=== PATIENT | female | born 1980 | race Caucasian/White ===

== ENCOUNTER → 2022-02-03 16:58 | Outpatient (REF) | payer OTHER, SELFPAY ==
--- NOTE | 2022-02-03 17:05 | CA_ITS ---
Transthoracic Echocardiogram Patient (Last, First, Middle): Lily Kemp, Gender: Female Date of : 1980 Age: 41 Procedure Date: 02/03/2022 Procedure Type: Transthoracic Echocardiogram Location: [facility] Height: 160.02 cm Weight: 89.81 kg BSA: 1.93 m2 Heart Rate: bpm BP: 128 / 88 mmHg [place] Operator: [id number] Referring MD: Donna Reyna ART CONSULTANT Symptoms: R07.9 CHEST PAIN Study Quality: Fair ECG Rhythm: Sinus Conclusions: - The left ventricular systolic function is normal. The calculated ejection fraction is 62% by biplane method. - No obvious valvular pathology seen on this study. Findings Left Ventricle Normal left ventricular cavity size. There is normal left ventricular wall thickness. The left ventricular systolic function is normal. The calculated ejection fraction is 62% by biplane method. There is no evidence of regional wall motion abnormalities. Diastolic function is normal for age. Right Ventricle Normal right ventricular cavity size and systolic function. Atria Both atria are normal in size. Aortic Valve There is a normal trileaflet aortic valve. There is no aortic valve stenosis. There is no aortic valve regurgitation. Mitral Valve The mitral valve appears normal. There is no mitral valve regurgitation. There is no mitral valve stenosis. Pulmonic Valve The pulmonic valve is likely normal. Tricuspid Valve Normal tricuspid valve structure. There is trace tricuspid valve regurgitation. There is no evidence of pulmonary hypertension. Great Vessels The asc aorta is normal in size. Venous The inferior vena cava is normal in size and collapses greater than 50% with inspiration. Pericardium/Pleural There is no evidence of pericardial effusion. Prior Study Comparison No significant change compared to prior study dated: 02/11/2010. (prior study from [facility]) Recommendations, Care & Conclusions No obvious valvular pathology seen on this study. Measurements 2D Linear Measurements IVSd: 0.96 0.6-0.9/0.6-1.0 cm LVIDd: 4.15 3.9-5.3/4.2-5.9 cm LVIDd Index: 2.15 2.4-3.2/2.2-3.1 cm/m2 LVIDs: 2.63 2.0-3.6 cm LVPWd: 1.05 0.7-1.1 cm LA Diam: 3.50 2.7-3.8/3.0-4.0 cm LAIDs Index: 1.81 1.5-2.3 cm/m2 LV Mass: 168.64 67-162/88-224 g LV Mass Index: 87.38 43-95/49-115 g/m2 LVOT Diam: 2.00 3.0+(-)1.3 cm 2D Systolic Function EF 4C: 62.70 >55% EF 2C: 64.80 >55% EF BiP: 61.70 >55% Mitral Valve MV Pk E: 0.95 MV PK A: 0.75 MV Decel Time: 206.00 E/A: 1.30 E'Lateral: 13.90 E'Medial: 10.00 E/E' Med: 9.50 E/E' Lat: 6.80 PHT: 60.00 MVA PHT: 3.67 Decel [place]: 4.60 Aortic Valve AoV Pk Corbin: 1.54 AoV Mn Corbin: 1.14 AoV VTI: 0.34 AoV Pk Grad: 9.00 Aov Mn Grad: 6.00 DULCE MARIA Cont.VTI: 2.49 LVOT LVOT Pk Corbin: 1.28 LVOT Mn Corbin: 0.87 LVOT VTI: 0.27 LVOT Pk Grad: 7.00 LVOT Mn Grad: 3.00 LVOT Diam: 2.00 LVOT Area: 3.14 Diastolic Function MV Pk E: 0.95 MV Pk A: 0.75 E/A: 1.30 E'Medial: 10.00 E/E' Med: 9.50 E' Laterial: 13.90 E/E' Lat: 6.80 Right Ventricle TAPSE (mm): 23.50 TVS' Corbin: 11.30 Tricuspid Valve RA Press: 3.00 Great Vessels Aorta Sinus of Valsalva: 2.92 2.0-3.[address] [place]: 2.58 1.7-3.4 cm Ao Asc: 3.50 2.1-3.4 cm Ao Arch: 2.90 Updated in Other Vendor System with Status of Final Manny Borja MD electronically signed on 02/05/2022 1:36:07 PM with status of Final
== END ==
LOC: HO.CARD 16:58
PROVIDERS: Visit Provider Nurse Practitioner Family
DX: R07.9 Chest pain, unspecified (principal)
CPT/HCPCS: 93306